=== PATIENT | male | born 1995 | race African-American/Black ===

== ENCOUNTER 2022-07-19 09:35 | Emergency (ER) | payer BC ==
[~2022-07-19] VITALS: Ht 177.8 cm; Wt 95.5 kg
[2022-07-19 09:39] VITALS: BP 110/87
== END 2022-07-19 14:18 | disposition left against medical advice (07) ==
LOC: ER 09:35
DX: S60.459A Superficial foreign body of unspecified finger, initial encounter (principal); X58.XXXA Exposure to other specified factors, initial encounter; Y93.89 Activity, other specified; Y92.89 Other specified places as the place of occurrence of the external cause; Y99.8 Other external cause status
CPT/HCPCS: 99281